=== PATIENT | male | born 1985 | race Caucasian/White ===

== ENCOUNTER 2016-06-15 07:18 | Emergency (ER) | payer SELFPAY ==
[2016-06-15 07:37] VITALS: BP 130/86
--- OUTSIDE RECORDS SUMMARY | 2016-06-15 07:53 | XMS REPORT | Continuity of Care Document ---
:1985 Author Organization [facility] ([facility]) Address [address] [place] [address] Phone [phone] Care Team Providers Name Role Phone Charan Bone Primary Care Provider [phone] Source Comments This disclosure is being made pursuant to the Care Everywhere program, applicable federal and state laws, and may not contain all informaitonavailable regarding this patient.[facility] ([facility]) Active Allergies and Adverse Reactions Allergen Noted Date Severity Reactions Comments Guaifenesin 11/25/2009 Pruritus,OTHER "Difficulty breathing" Oxycodone-Acetaminophen 01/20/2012 OTHER Mood problems Penicillin G 11/25/2009 Urticaria "Difficulty (Hives),OTHER breathing" Propoxyphene 11/25/2009 Low Nausea & Vomiting Per patient, causes N-Acetaminophen "nausea and diarrhea" Current Medications Prescription Sig. Disp. Refills Start Date End Date Status CLINDAMYCIN HCL PO Take by mouth. Active IBUPROFEN (ADVIL PO) Take by mouth. Active LISDEXAMFETAMINE Take 50 mg by Active DIMESYLATE (VYVANSE PO) mouth daily. ALPRAZOLAM (XANAX PO) Take 2 mg by mouth Active daily. HYDROcodone-acetaminophen Take 1-2 Tabs by 20 Tab 0 09/30/2010 Active 5-500 mg per tablet mouth. Every 4-6 hrs PRN maximum 8 tabs/24 hours. Indications: Pain ibuprofen 800 mg tablet Take 1 Tab by 25 Tab 0 09/30/2010 Active mouth every 6 hours as needed. maximum 4 tabs/24 hours Indications: Pain chlorhexidine (PERIDEX) Take 10-15 mL by 473 mL 2 09/30/2010 Active 0.12 % oral rinse mouth 2 times daily. Swish and spit NPO 1/2 hour. Indications: Mouth Infection Prevention BUDESONIDE/FORMOTEROL Use by inhalation Active FUMARATE (SYMBICORT INH) daily. albuterol 90 Use 2 Puffs by Active mcg/Actuation inhaler inhalation every 6 hours as needed. HYDROcodone-acetaminophen Take 1 Tab by 15 Tab 0 01/20/2012 Active 5-325 mg per tablet mouth every 4 hours as needed. 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 Pulse 97 01/20/2012 8:59 AM CERTIFIED NUCLEAR MEDICINE TECHNOLOGIST Temperature 37 C (98.6 F) 01/20/2012 8:59 AM CERTIFIED NUCLEAR MEDICINE TECHNOLOGIST Respiratory Rate 16 01/20/2012 8:59 AM CERTIFIED NUCLEAR MEDICINE TECHNOLOGIST Height 1.803 m (5' 10.98") 12/29/2000 9:47 AM CDT Weight 160.6 kg (354 lb 0.9 oz) 11/25/2009 10:06 AM CDT Body Mass Index - - Oxygen Saturation 99% 01/20/2012 8:59 AM CERTIFIED NUCLEAR MEDICINE TECHNOLOGIST Plan of Care Health Maintenance Due Date Last Done Comments Hepatitis B Vaccine (1 of 3 - Primary Series) 1985 Tdap Vaccine 12/08/1994 Lipid Disorder Screening 12/08/2001 MMR Vaccine 12/08/2001 Td Vaccine 12/08/2001 Varicella Vaccine (1 of 2 - Adult - No Evidence of 12/08/2001 Immunity) Pneumococcal Vaccine (1 of 1 - PPSV23) 12/08/2002 Influenza Vaccine: Seasonal (#1) 10/14/2015 Results from Last 3 Months Not on file
--- NOTE | 2016-06-15 08:02 | ERNOTE ---
Time Seen by Provider: 06/15/16 07:28 Stated Complaint: COUGH/HARD TO CATCH BREATH Presenting Symptoms:: cough, runny nose Immunizations: IMMUNIZATION HX Immunizations Up to Date Yes History of Influenza Vaccine No Hx Pneumococcal Vaccination No Allergies/Adverse Reactions: Allergies acetaminophen [From Darvocet-N 100] Allergy (Mild, Verified 06/15/16 07:32) penicillin V potassium [From Pen-Vee K] Allergy (Mild, Verified 06/15/16 07:32) propoxyphene napsylate [From Darvocet-N 100] Allergy (Mild, Verified 06/15/16 07 :32) codeine [Codeine] Adverse Reaction (Mild, Verified 06/15/16 07:32) Nausea Home Medications: HOME MEDICATIONS Budesonide/Formoterol Fumarate [Symbicort 160-4.5 Mcg Inhaler] 10.2 gm IH BID [Last Taken 05/10/12] ALPRAZolam [Xanax] 4 mg PO HS 10/22/12 [Last Taken Unknown] Ipratropium/Albuterol Sulfate [Combivent Respimat Inhal Maurice] 1 puff IH BID [Last Taken Unknown] ALPRAZolam [Xanax] 2 mg PO DAILY PRN 06/12/15 [Last Taken Unknown] Albuterol Sulfate [Proair Hfa] 2 puff IH QID PRN 06/15/16 [Last Taken Unknown] Dextroamphetamine/Amphetamine [Adderall 30 mg Tablet] 30 mg PO BID 06/15/16 [ Last Taken Unknown] - History of Present Ilness Narrative: PT WITH COUGH RUNNY NOSE AND STUFFINESS SINCE WEDNESDAY. STATES HE WANTS ANTIBIOTICS BECAUSE HIS DOCTOR ALWAYS GIVES HIM SOME. Review of Systems - Review of Systems Constitutional: Present: See HPI, recent illness ENT: Present: nose congestion, nasal drainage Respiratory: Present: cough All Other Systems: All systems neg except as marked - Patient's Past Medical History Patient History - Medical: ADHD, Anxiety, Chronic Pain, Migraines, Obesity Patient History - Cardiac/Respiratory: Asthma Patient History - Cancer: No Hx of Cancer Patient History - Surgical Procedures: T & A Patient History - Other: None - Social History Living Situations: other Abuse History: No History of abuse Psych History: Hx of Anxiety, Current tx/ever been on anti-depressants or anti- anxiety meds Smoking Status: Current every day smoker Patient requests Smoking Cessation Consult: No Alcohol Use: occasionally Drug Use: none - Immunizations Immunizations Up to Date: Yes Hx Pneumococcal Vaccination: No History of Influenza Vaccine: No Physical Exam - Physical Exam General Appearance: Present: wd/wn, alert, no apparent distress Ears, Nose, Throat: Present: normal except -, nasal congestion Respiratory: Present: no respiratory distress, normal breath sounds, no accessory muscle use, chest nontender, lungs clear Cardiovascular/Chest: Present: regular rate, rhythm, no murmur, normal peripheral pulses Skin Exam: Present: normal color ED Progress - Vital Signs Vital Signs: Vital Signs 06/15/16 06/15/16 07:22 07:35 Temperature 36.7 C Pulse Rate 92 92 Respiratory 20 18 Rate Blood Pressure 132/90 130/86 O2 Sat by Pulse 94 95 Oximetry - Progress/Reassessment Chief Complaint: Upper Respiratory Symptoms Departure - Departure Clinical Impression: Upper respiratory infection Disposition: Home Follow Up Needed Condition: Good Instructions: Cough, Adult, [id number], Upper Respiratory Infection, Adult, [id number] Referrals: Erick Barry MD [Primary Care Provider] -
== END 2016-06-15 08:14 | disposition home or self-care (01) ==
LOC: ER 07:18
DX: J06.9 Acute upper respiratory infection, unspecified (principal); F17.200 Nicotine dependence, unspecified, uncomplicated